=== PATIENT | male | born 1950 ===

== ENCOUNTER → 2021-02-18 | Outpatient (CLI) | payer MEDICARE ==
[~2021-02-18] MED LIST: OMNIPAQUE 350 MG/ML, 100ML BOTTLE ONE
== END | disposition home or self-care (01) ==
LOC: CFH 07:58
PROVIDERS: ATTEND Specialist
DX: C22.0 Liver cell carcinoma (principal); R91.8 Other nonspecific abnormal finding of lung field; E55.9 Vitamin D deficiency, unspecified; R16.0 Hepatomegaly, not elsewhere classified
CPT/HCPCS: 71260; 74177; Q9967